=== PATIENT | male | born 2000 | race Caucasian/White ===

== ENCOUNTER 2022-07-21 03:39 | Emergency (ER) | payer SELFPAY ==
[2022-07-21] MEDS ORDERED: Ketamine 50 MG/ML (10ML VIAL) ONE (04:02)
[2022-07-21] MEDS ORDERED: Ondansetron PF 4 MG/2 ML Vial ONE (04:27)
== END 2022-07-21 08:51 | disposition home or self-care (01) ==
LOC: CSHERS 03:39
DX: F10.129 Alcohol abuse with intoxication, unspecified (principal)
CPT/HCPCS: 96361; 96374; 96375; J2405